=== PATIENT | male | born 1950 | race Asian ===

== ENCOUNTER 2019-08-16 07:15 | Emergency (ER) | payer OTHER ==
[~2019-08-16] VITALS: Ht 175.3 cm; Wt 70.3 kg
[2019-08-16 07:28] VITALS: TEMP 99.7
[2019-08-16] MEDS ORDERED: PROGRAF0.5 MG PO (07:37)
[2019-08-16] MEDS ORDERED: CELLCEPT250 MG PO (07:37)
[2019-08-16] MEDS ORDERED: OMEPRAZOLE DR20 MG PO (07:38)
[2019-08-16] MEDS ORDERED: TAMSULOSIN0.4 MG PO (07:39)
[2019-08-16] MEDS ORDERED: LEVO0.117 PO (07:40)
[2019-08-16] MEDS ORDERED: VITAMIN D31000 UNIT PO (07:41)
[2019-08-16] MEDS ORDERED: LIPITOR20 MG PO (07:42)
[2019-08-16] MEDS ORDERED: CARV12.5 PO (07:42)
[2019-08-16] MEDS ORDERED: ESCITALOPRAM20 MG PO (07:44)
[2019-08-16] MEDS ORDERED: CVS SENNA8.6 MG PO (07:44)
[2019-08-16] MEDS ORDERED: CLARITIN10 M1 PO (07:45)
[2019-08-16 08:43] VITALS: BP 118/78
== END 2019-08-16 08:45 | disposition home or self-care (01) ==
LOC: ED 07:15
DX: J06.9 Acute upper respiratory infection, unspecified (principal); R50.9 Fever, unspecified; J10.1 Influenza due to other identified influenza virus with other respiratory manifestations
CPT/HCPCS: 87502; 87651; 99283